=== PATIENT | male | born 1975 | race Caucasian/White ===

== ENCOUNTER 2022-08-04 05:51 | Inpatient (IN) | payer BC ==
[2022-08-04] VITALS (10 sets, daily range): BP systolic 99–129; BP diastolic 56–88; PULSE 51–74; TEMP 97.8–98.8
[~2022-08-04] VITALS: Ht 182.9 cm; Wt 97.7 kg
[~2022-08-04 05:51] MED LIST: AMOXICILLIN 8751 TAB PO; LEXAPRO 10MG10 MG PO; NORCO 325 MG-51 TAB PO
[2022-08-04 06:25] LABS: BASO % 0.2 % (0.0-2.0); GRAN # 13.5 K/mm3 (1.4-6.5); GRAN % 86.2 % (42.2-75.2); HEMOGLOBIN 14.6 g/dl (13.5-18.0); LYMPH % 6.2 % (20.0-51.0); MEAN CELL VOLUME 88 fl (80.0-100.0); MEAN CORPUSCULAR HEMOGLOBIN 30 pg (27-31); MEAN CORPUSCULAR HGB CONC 34 g/dl (33.0-37.0); MEAN PLATELET VOLUME 10.5 fl (7.4-10.4); MONO # 1.1 K/mm3 (0.1-0.6); PLATELET COUNT 154 K/mm3 (130-400); REDCELL DISTRIBUTION WIDTH-CV 12.9 % (11.5-14.5)
[2022-08-04 06:45] LABS: BILIRUBIN,TOTAL 0.8 mg/dL (0.2-1.2); C-REACTIVE PROTEIN 4.59 mg/dL (0.00-0.50); CALCIUM 9.6 mg/dL (8.4-10.2); CREATININE, serum 1.2 mg/dL (0.72-1.25); POTASSIUM 3.8 mmol/L (3.5-4.5); TOTAL PROTEIN 7.4 gm/dL (6.2-8.1)
[2022-08-04] MEDS ORDERED: OSTEO-BI-FLEX 21 TAB PO (06:53)
[2022-08-04] MEDS ORDERED: QUALITY CHOICE1 T22 PO (06:53)
[2022-08-04 07:37] LABS: COLLECTION METHOD CLEAN CATCH
[2022-08-04 07:49] LABS: MUCOUS Present (NOT PRESENT); SQUAMOUS EPITHELIAL None Seen /hpf (0-10); URINE BACTERIA None Seen /hpf (NONE SEEN); URINE RBC 0-2 /hpf (0-2)
[2022-08-04 07:58] LABS: PH 5.5 (5.0-8.5); URINE APPEARANCE Clear (CLEAR/HAZY); URINE BLOOD Negative (NEGATIVE); URINE COLOR Yellow (YELLOW); URINE GLUCOSE Negative (NEGATIVE); URINE KETONE TRACE (NEGATIVE); URINE NITRATE Negative (NEGATIVE); URINE PROTEIN(semi-quant) Negative (NEGATIVE); URINE UROBILINOGEN 0.2 E.U/dL (0.2-1.0)
--- NOTE | 2022-08-04 14:00 | NUR ---
PATIENT ADMITED INTO ROOM 347 POST OP. A&O. VSS. NO COMPLAINTS. PATIENT ASKING ABOUT FOOD, EDUCATED ON CLEAR LIQUID DIET. LIQUIDS AT BEDSIDE. PATIENT REFUSED JELLO OR BROTH AT THIS TIME, PROVIDER TO COME SEE PATIENT BEFORE DIET ADVANCED. PACU REPORTED FEVER OF 99.4 TO 100.6, STARTED POSTOP IV ABX AND INFUSING INTO RIGHT AC, SEE MAR. ABD LAP SITES X2 ARE WELL APPROXIMATED. ANDREA TO COMPRESSION WITH SMALL AMOUNTS OF BLOODY DRAINAGE NOTED. HEAD TO TOE ASSESSMENT COMPLETE. AT BEDSIDE. ORIENTED TO ROOM. CALL LIGHT IN REACH.
--- NOTE | 2022-08-04 16:30 | NUR ---
PATIENT UP TO BATHROOM TO VOID AND PATIENT WANTING TO WALK. PATIENT AMBULATED IN HALLS WITH NURSE, GAIT STEADY, AND TOLERATED ACTIVITY. PATIENT DID REPORT A "PULLING" FEELING IN ABD/GROIN POST OP WITH GETTING UP AND DOWN. NURSE PROVIDED POST OP APPY EDUCATION. GAVE PRN IBUPROFEN. ANDREA NOTED 25CC
--- NOTE | 2022-08-04 20:01 | NUR ---
Patient assessed at this time, see shift assessment, rates his pain at 6/10, [place] given per request and as ordered PRN, NS infusing well on right AC, refused his SCD at this time, denies further needs, call light and personal items within reach.
[2022-08-05 03:39] VITALS: BP 101/59; PULSE 87; TEMP 98.1
--- NOTE | 2022-08-05 04:10 | NUR ---
Patient walked down the hallway and approached this nurse and reports that he has pain on his penile area, no blood in the urine noted, this nurse was about to call the provider but patient however said not to call the doctor. Patient just had a dose of [place] at 0226, and agreed to take ibuprofen, offered warm blankets and applied to the pained site, ANDREA drain dressing CDI at this time,
--- NOTE | 2022-08-05 06:36 | NUR ---
Called Dr. Rodriguez d/t patient still complaining of bladder spasm and pain on the penile area, received an order for levsin every 4 hours PRN.
[2022-08-05 06:59] LABS: MEAN CELL VOLUME 91 fl (80.0-100.0); MEAN CORPUSCULAR HGB CONC 33 g/dl (33.0-37.0); MEAN PLATELET VOLUME 11.3 fl (7.4-10.4); PLATELET COUNT 119 K/mm3 (130-400); RED BLOOD COUNT 4.05 M/mm3 (4.20-5.60); REDCELL DISTRIBUTION WIDTH-CV 13.3 % (11.5-14.5)
[2022-08-05 07:04] LABS: HEMATOCRIT 36.9 % (42.0-52.0); MEAN CORPUSCULAR HEMOGLOBIN 30 pg (27-31)
[2022-08-05 08:20] VITALS: BP 107/72; PULSE 53; TEMP 97.8
--- NOTE | 2022-08-05 09:17 | NUR ---
Initial visit; Patient declined visit. Steel Wool Machine Operator wished him well.
--- NOTE | 2022-08-05 09:26 | NUR ---
ALEXIS met with the patient, his (Kelle, ph#[phone]), and [id number] to discuss discharge plan. The patient lives in [place] with his . He reports independence with ADLs and does not have any DME. The patient's PCP is Dr. Lasha Garza and he obtains his meds from [facility] in . The patient does not have a DPOA-HC and he was not interested in completing one at this time. The patient plans to return home with his upon discharge. No additional needs at this time. *Discharge plan: home with *
[2022-08-05] MEDS ORDERED: NORCO 325 MG-51 TAB PO (10:47)
[2022-08-05] MEDS ORDERED: AMOXICILLIN 8751 TAB PO (10:48)
[2022-08-05 12:26] VITALS: BP 107/71; PULSE 51; TEMP 98.6
[2022-08-05 14:59] VITALS: BP 116/74; PULSE 48; TEMP 97.7
--- NOTE | 2022-08-05 17:00 | NUR ---
PATIENT OUT FOR A WALK IN THE HALLS AGAIN. HE SAID HE IS ON "LAP NUMBER 3". TOLERATING ACTIVITY WELL.
[2022-08-05 19:39] VITALS: BP 117/71; PULSE 60; TEMP 98.4
--- NOTE | 2022-08-05 20:08 | NUR ---
PT INDEPENDENT IN ROOM. INT TO RAC, CONNECTED IV ANTIBIOTIC, INFUSING WITHOUT PROBLEM. MEDICATED WITH NORCO 2 TABS PO FOR ABD PAIN. REPORTS LLQ ROBOTIC SITE IS MOST PAINFUL WITH BURNING SENSATION. EMPTIED 3CC OF THICK REDDISH DRAINAGE FROM ANDREA DRAIN AT THIS TIME.
[2022-08-05 23:09] VITALS: BP 119/78; PULSE 52; TEMP 98.5
--- NOTE | 2022-08-05 23:51 | NUR ---
PT ASKING FOR PAIN MEDS, NORCO 2 TABS PO GIVEN AT THIS TIME. SPOUSE AT BEDSIDE.
--- NOTE | 2022-08-06 02:00 | NUR ---
IV ANTIBIOTIC INFUSING TO RAC WITHOUT PROBLEM.
--- NOTE | 2022-08-06 02:35 | NUR ---
ANTIBIOTIC COMPLETE. PT ASKING FOR PAIN MEDS AT 0400.
--- NOTE | 2022-08-06 03:21 | NUR ---
PT AMBULATING IN HALLWAY, ASKS FOR MOTRIN, REPORTS LOWER ABD PAIN FROM ANDREA DRAIN.
[2022-08-06 03:22] VITALS: BP 126/82; PULSE 64; TEMP 97.5
--- NOTE | 2022-08-06 03:52 | NUR ---
PT ASKS FOR MORPHINE FOR ABD PAIN FROM ANDREA DRAIN. MORPHINE 2MG IVP AND NORCO 2 TABS PO FOR CONTINUED PAIN.
[2022-08-06 07:12] LABS: HEMOGLOBIN 11.4 g/dl (13.5-18.0); MEAN CELL VOLUME 90 fl (80.0-100.0); MEAN CORPUSCULAR HEMOGLOBIN 30 pg (27-31); MEAN CORPUSCULAR HGB CONC 34 g/dl (33.0-37.0); MEAN PLATELET VOLUME 11.4 fl (7.4-10.4); PLATELET COUNT 127 K/mm3 (130-400); RED BLOOD COUNT 3.78 M/mm3 (4.20-5.60); REDCELL DISTRIBUTION WIDTH-CV 13.4 % (11.5-14.5)
[2022-08-06 07:16] LABS: HEMATOCRIT 33.9 % (42.0-52.0)
[2022-08-06 07:34] VITALS: BP 117/76; PULSE 56; TEMP 97.8
--- NOTE | 2022-08-06 08:21 | NUR ---
Patient in bed, awake, alert and oriented. Eating breakfast. Complaining of pain at ANDREA site and lower mid abdomen. Requests PRN pain medication and states he needs something to help him have a BM, reports no BM since . Tolerating meal well, no nausea or vomiting. PRN given. Bed in lowest position, call light within reach.
--- NOTE | 2022-08-06 11:17 | NUR ---
Patient discharged to home, picked up by . Educated on all discharge instructions and new medications, pt verbalized understanding. IV removed. Nursing staff assisted safely to car for transportation home.
== END 2022-08-06 11:23 | disposition home or self-care (01) | DRG 340 ==
LOC: COL.ER 05:51 → SDCO 12:42 → SURG 13:40 → SDCO 08-05 14:29 → SURG 08-05 14:30
PROVIDERS: Emergency Medicine; ADMIT Surgery
PROC: 0DTJ4ZZ Resection of Appendix, Percutaneous Endoscopic Approach (ICD-10-PCS; principal; 2022-08-04 10:30)
DX: K35.32 Acute appendicitis with perforation, localized peritonitis, and gangrene, without abscess (principal); F41.9 Anxiety disorder, unspecified; F32.A Depression, unspecified; N32.89 Other specified disorders of bladder; Z90.49 Acquired absence of other specified parts of digestive tract
CPT/HCPCS: OP; J1100; J1885; J2270; J2405; J2543; J2704; J3010; J7030; J7120; Q9967